=== PATIENT | female | born 1945 | race Caucasian/White ===

== ENCOUNTER 2024-09-19 15:00 | Emergency (ER) | payer OTHER ==
[~2024-09-19] VITALS: Ht 162.6 cm; Wt 106.6 kg
[2024-09-19] MEDS ORDERED: ELIQUIS2.5 MG PO (15:51)
[2024-09-19] MEDS ORDERED: ATORVASTATIN CA10 MG PO (15:51)
[2024-09-19] MEDS ORDERED: COZAAR25 MG PO (15:51)
[2024-09-19] MEDS ORDERED: TETANUS & DIPHTHERIA TOX,ADULT 0.5 ML VIAL IM ONE (16:45)
[2024-09-19] MEDS ORDERED: CEFTRIAXONE SODIUM 1,000 MG VIAL IM ONE (16:45)
[2024-09-19] MEDS ORDERED: LIDOCAINE HCL 1% 10ML VIAL PERCUT ONE (16:45)
[2024-09-19] MEDS ORDERED: CEFTRIAXONE SODIUM 1,000 MG VIAL ONE (17:25)
[2024-09-19] MEDS ORDERED: LIDOCAINE HCL 1% 10ML VIAL ONE (17:25)
[2024-09-19] MEDS ORDERED: DUI500 PO (18:07)
[2024-09-19] MEDS ORDERED: DIPHTH,PERTUSS(ACELL),TET VAC 0.5 ML SYRINGE IM ONE ×2 (18:15→18:37)
== END 2024-09-19 19:24 ==
LOC: ER 15:00
DX: S91.021A Laceration with foreign body, right ankle, initial encounter (principal); W45.8XXA Other foreign body or object entering through skin, initial encounter; Y93.89 Activity, other specified; Y92.512 Supermarket, store or market as the place of occurrence of the external cause; I48.91 Unspecified atrial fibrillation; E78.00 Pure hypercholesterolemia, unspecified; I10 Essential (primary) hypertension; F32.89 Other specified depressive episodes
CPT/HCPCS: 12002; 90471; 90714; 96372; 99282; J0696; J1670